=== PATIENT | male | born 1965 | race Caucasian/White ===

== ENCOUNTER 2016-07-06 07:54 | Outpatient (CLI) | payer OTHER ==
[2016-07-06 08:39] LABS: eGFR (African) > 60; eGFR (Non-African) > 60
== END 2016-07-06 07:55 ==
LOC: LAB 07:54
PROVIDERS: ATTEND Nurse Practitioner Family
DX: E29.1 Testicular hypofunction (principal); E87.6 Hypokalemia
CPT/HCPCS: 36415; 80053; 84403

== ENCOUNTER 2016-07-07 07:55 | Outpatient (CLI) | payer OTHER | END 2016-07-07 07:56 | LOC: LAB 07:55 | PROVIDERS: ATTEND Nurse Practitioner Family | DX: E29.1 Testicular hypofunction (principal); E87.6 Hypokalemia | CPT/HCPCS: 36415; 84403 ==